=== PATIENT | female | born 1995 | race Asian ===

== ENCOUNTER → 2017-01-20 | Outpatient (CLI) | payer OTHER ==
[~2017-01-20] MED LIST: INHALER INH; MONT1CHW6 PO; NAPR-1169 PO
--- NOTE | 2017-01-20 14:23 | DIAGNOSTIC IMAGING REPORT ---
PELVIC ULTRASOUND CLINICAL HISTORY: BREAK THRU BLEEDING. COMPARISON STUDY: Pelvic ultrasound February 11, 2014. TECHNIQUE: Transabdominal sonography of the pelvis was performed. Transvaginal imaging was not performed in this patient. FINDINGS: The uterus measures 8.4 x 3.6 x 4.8 cm. Endometrium measures 8 mm in thickness. No uterine abnormalities are identified on transabdominal exam. The right ovary measures 3.8 x 2 x 1.3 cm and the left measures 3.3 x 1.6 x 1.7 cm. There is no free fluid. IMPRESSION: Normal transabdominal pelvic ultrasound. No uterine abnormalities. Endometrial thickness of 8 mm. Electronically signed by: Silviano Lainez M.D. 01/20/2017 2:21 PM Dictated Date/Time: 01/20/2017 2:09 PM
== END | disposition home or self-care (01) ==
LOC: C.ULTR 13:47
PROVIDERS: ATTEND Physician Assistant Medical
DX: N92.1 Excessive and frequent menstruation with irregular cycle (principal)